=== PATIENT | male | born 1995 | race Caucasian/White ===

== ENCOUNTER → 2016-03-25 | Day surgery (SDC) | payer BC, OTHER ==
[~2016-03-25] VITALS: Ht 177.8 cm; Wt 54.4 kg
[~2016-03-25] MED LIST: FLOM5CAP PO; LIDOCAINE 2% INJ 100 MG/5 ML SDV (FOR ANES.) As Ordered ONE; MIDAZOLAM INJ 2 MG/2 ML VIAL (J2250) As Ordered ONE; MOTR200T40 PO; PROPOFOL 200 MG/20 ML VIAL As Ordered ONE; TAMSULOSIN 0.4 MG CAP PO SCH; TRAM-533 PO; ceFAZolin 2 GM/D5W 50 ML IV BAG (J0690) As Ordered ONE; fentaNYL 100 MCG/2 ML INJECTION (J3010) As Ordered ONE; traMADol 50 MG TAB As Ordered ONE; traMADol 50 MG TAB PO PRN
--- NOTE | 2016-03-25 09:19 | REP ---
Clinical: Nephrolithiasis. Technique: Two supine views of the abdomen and pelvis. Findings: Punctate nonobstructing intrarenal calculi (left greater than right) cannot be excluded. Further evaluation of the urinary tract system is limited due to overlying bowel gas and technique. No evidence for bowel obstruction. No organomegaly. Skeletal structures are intact and normal. Impression: Cannot exclude punctate nonobstructing renal calculi (left greater than right). Signed by Guzman Tejada MD 03/25/2016 09:10 A
[2016-03-25 10:15] VITALS: BP 120/74
--- NOTE | 2016-03-25 11:53 | RO ---
DATE OF PROCEDURE: 03/25/2016 PREOPERATIVE DIAGNOSIS: Left kidney stone. POSTOPERATIVE DIAGNOSIS: Left kidney stone. SURGERY PERFORMED: Left extracorporeal shockwave lithotripsy. SURGEON: Dr. García Elaine SHUCKER: None. ANESTHESIA: Monitored anesthesia care (MAC). COMPLICATIONS: None. ESTIMATED BLOOD LOSS: N/A. HISTORY OF PRESENT ILLNESS: This is a 20-year-old male patient with a 4 mm stone in the left kidney in the mid pole. The patient has consented for left extracorporeal shockwave lithotripsy. PROCEDURE DESCRIPTION: In a patient under MAC anesthesia in supine position after finding the stone with ultrasound, which was fairly easy, we gave a total of 2500 shockwave lithotripsies. The power went from 1 to 20. The first 100 shockwaves were done at a level of 1-5, the following 100 shockwaves were done at a level of 5-10, the following 2300 shockwaves were done at a level of 10-20. There were no complications of surgery. The plan will be to follow and the patient will go home today with increased water intake for 3 liters and follow at [facility] in 3 weeks. He will take Flomax and tramadol for pain.
== END ==
LOC: M SDC 06:16
PROVIDERS: ATTEND Urology
DX: N20.0 Calculus of kidney (principal); J45.909 Unspecified asthma, uncomplicated; Z79.899 Other long term (current) drug therapy; Z79.51 Long term (current) use of inhaled steroids; Z87.442 Personal history of urinary calculi
CPT/HCPCS: 50590; 74000; J0690; J2250; J3010

== ENCOUNTER → 2016-04-19 | Outpatient (CLI) | payer BC, OTHER ==
[~2016-04-19] MED LIST changes: -LIDOCAINE 2% INJ 100 MG/5 ML SDV (FOR ANES.) As Ordered ONE; -MIDAZOLAM INJ 2 MG/2 ML VIAL (J2250) As Ordered ONE; -MOTR200T40 PO; +MOTR200T44 PO; -PROPOFOL 200 MG/20 ML VIAL As Ordered ONE; -TAMSULOSIN 0.4 MG CAP PO SCH; -ceFAZolin 2 GM/D5W 50 ML IV BAG (J0690) As Ordered ONE; -fentaNYL 100 MCG/2 ML INJECTION (J3010) As Ordered ONE; -traMADol 50 MG TAB As Ordered ONE; -traMADol 50 MG TAB PO PRN
--- NOTE | 2016-04-19 12:49 | REP ---
KUB: Single view. HISTORY: Kidney calculus. Comparison KUB study March 25, 2016. FINDINGS: There is a faint calcific density superimposed on the left lower pole 3 to 4 mm in diameter consistent with an intrarenal calculus. Calcifications were visible in the left kidney on CT study from March 10, 2016. Bowel gas pattern is normal. IMPRESSION: Suspect small intrarenal calculus lower pole left kidney. Signed by Saul Goodman MD 04/19/2016 01:25 P
== END ==
LOC: M SMT 08:22
PROVIDERS: ATTEND Nurse Practitioner Women's Health
DX: N20.0 Calculus of kidney (principal)

== ENCOUNTER → 2016-10-05 | Outpatient (CLI) | payer BC, OTHER ==
[2016-10-05 12:34] LABS: MEAN CORPUSCULAR HEMOGLOBIN 30.4 pg (27.0-33.0); MEAN CORPUSCULAR HGB CONC 34.7 g/dl (32.0-36.5); MEAN CORPUSCULAR VOLUME 87.6 fl (80.0-96.0); RED CELL DISTRIBUTION WIDTH 12.1 % (11.5-14.5); WHITE BLOOD COUNT 5.8 K/mm3 (4.0-10.0)
[2016-10-05 12:58] LABS: ALBUMIN 4.1 GM/DL (3.2-5.2); ALBUMIN/GLOBULIN RATIO 1.24 (1.00-1.93); ALKALINE PHOSPHATASE 64 U/L (45-117); ALT/SGPT 40 U/L (12-78); ANION GAP 8 MEQ/L (8-16); AST/SGOT 20 U/L (15-37); BILIRUBIN,TOTAL 0.5 MG/DL (0.2-1.0); BLOOD UREA NITROGEN 13 MG/DL (7-18); CALCIUM LEVEL 9.3 MG/DL (8.5-10.1); CARBON DIOXIDE LEVEL 26 MEQ/L (21-32); CHLORIDE LEVEL 107 MEQ/L (98-107); CHOLESTEROL LEVEL 132 MG/DL (<200); CREATININE FOR GFR 0.75 MG/DL (0.70-1.30); GLUCOSE, FASTING 85 MG/DL (70-105); POTASSIUM SERUM 4.3 MEQ/L (3.5-5.1); SODIUM LEVEL 141 MEQ/L (136-145); TOTAL PROTEIN 7.4 GM/DL (6.4-8.2); TRIGLYCERIDES LEVEL 77 MG/DL (<150)
[2016-10-07 00:07] LABS: HEMOGLOBIN A 97.3 % (94.0-98.0)
== END ==
LOC: M LAB 11:55
PROVIDERS: ATTEND Family Medicine
DX: Z83.2 Family history of diseases of the blood and blood-forming organs and certain disorders involving the immune mechanism (principal); R63.6 Underweight; Z13.220 Encounter for screening for lipoid disorders; E55.9 Vitamin D deficiency, unspecified

== ENCOUNTER 2018-10-10 09:21 | Emergency (ER) | payer BC, OTHER ==
[~2018-10-10] VITALS: Ht 177.8 cm; Wt 59.1 kg
[~2018-10-10 09:21] MED LIST changes: +FLOM0.4C39 PO; -FLOM5CAP PO
[2018-10-10 11:05] LABS: BASO % 0.5 % (0.0-1.0); EOS % 0.2 % (0.0-3.0); HEMATOCRIT 46.3 % (42.0-52.0); HEMOGLOBIN 15.4 g/dl (13.5-17.5); LYMPH # 1.6 10^3/uL (1.5-6.5); LYMPH % 18.7 % (24.0-44.0); MEAN CORPUSCULAR HEMOGLOBIN 30.3 pg (27.0-33.0); MEAN CORPUSCULAR HGB CONC 33.3 g/dl (32.0-36.5); MONO # 0.6 10^3/uL (0.0-0.8); MONO % 6.6 % (0.0-5.0); NEUTROPHILS # 6.1 10^3/uL (1.8-7.7); NEUTROPHILS % 73.6 % (36.0-66.0); PLATELET COUNT, AUTOMATED 336 10^3/uL (150-450); RED BLOOD COUNT 5.09 10^6/uL (4.30-6.10); WHITE BLOOD COUNT 8.3 10^3/uL (4.0-10.0)
[2018-10-10 11:42] LABS: BLOOD UREA NITROGEN 13 MG/DL (7-18); CALCIUM LEVEL 9.5 MG/DL (8.5-10.1); CARBON DIOXIDE LEVEL 29 MEQ/L (21-32); CHLORIDE LEVEL 106 MEQ/L (98-107); CREATININE FOR GFR 0.99 MG/DL (0.70-1.30); ETHYL ALCOHOL (ETHANOL) < 0.003 % (0.000-0.010); GLOMERULAR FILTRATION RATE > 60.0 (>60); GLUCOSE, FASTING 71 MG/DL (70-100); MAGNESIUM LEVEL 2.3 MG/DL (1.8-2.4); POTASSIUM SERUM 3.9 MEQ/L (3.5-5.1); SODIUM LEVEL 139 MEQ/L (136-145); THYROID STIMULATING HORMONE 0.464 uIU/ML (0.358-3.740)
[2018-10-10] MEDS ORDERED: NS 1,000 ML IV ONE (12:00)
[2018-10-10 13:31] LABS: AMPHETAMINES LEVEL URINE NEGATIVE (NEGATIVE); BARBITURATES URINE NEGATIVE (NEGATIVE); BENZODIAZEPINES URINE NEGATIVE (NEGATIVE); CANNABINOIDS URINE NEGATIVE (NEGATIVE); COCAINE METABOLITE URINE NEGATIVE (NEGATIVE); METHADONE URINE NEGATIVE (NEGATIVE); OPIATES URINE NEGATIVE (NEGATIVE); PHENCYCLIDINE URINE NEGATIVE (NEGATIVE)
[2018-10-10 14:01] VITALS: BP 120/75
--- NOTE | 2018-10-11 00:17 | ECGEPIP ---
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 Order Number: [id number] Reading MD: Maximo Dunbar Measurements Intervals [place] Rate: 66 P: 56 MT: 146 QRS: 74 QRSD: 93 T: 50 QT: 371 QTc: 390 Interpretive Statements SINUS RHYTHM Comparison tracing not on file Electronically Signed on 10-11-2018 0:17:21 EDT by Maximo Dunbar
== END 2018-10-10 14:07 | disposition home or self-care (01) ==
LOC: M ED 09:21
DX: R55 Syncope and collapse (principal)
CPT/HCPCS: 36415; 80048; 80307; 83735; 84443; 85025; 93005; 93041; 94760; 96360; 96361; 99285; G0480

== ENCOUNTER 2019-02-13 07:00 | Day surgery (SDC) | payer BC, OTHER ==
[~2019-02-13] VITALS: Ht 177.8 cm; Wt 59.9 kg
[~2019-02-13 07:00] MED LIST changes: +LIDOCAINE 1% MDV 20ML VIAL SQ PRN; +LR 1,000 ML IV ONE
[2019-02-13] MEDS ORDERED: LIDOCAINE 1% SDV INJ 30 ML VIAL As Ordered ONE (07:11)
[2019-02-13] MEDS ORDERED: fentaNYL 100 MCG/2 ML INJECTION (J3010) As Ordered ONE (07:14)
[2019-02-13] MEDS ORDERED: MIDAZOLAM INJ 2 MG/2 ML VIAL (J2250) As Ordered ONE (07:14)
[2019-02-13] MEDS ORDERED: PROPOFOL 200 MG/20 ML VIAL As Ordered ONE (07:16)
[2019-02-13] MEDS ORDERED: LIDOCAINE 2% INJ 100 MG/5 ML SDV (FOR ANES.) As Ordered ONE (07:16)
[2019-02-13] MEDS ORDERED: ONDANSETRON 4MG/2ML VIAL (J2405) As Ordered ONE (07:16)
[2019-02-13] MEDS ORDERED: ceFAZolin 1GM INJ (J0690 PER 500MG) As Ordered ONE (09:11)
--- NOTE | 2019-02-13 10:22 | RO ---
DATE OF OPERATION: 02/13/2019 PREOPERATIVE DIAGNOSIS: Unexplained syncope. POSTOPERATIVE DIAGNOSIS: Unexplained syncope. PROCEDURE PERFORMED: Implantation of a Biotronic implantable loop recorder (BioMonitor III). SURGEON: Maximo Beaver MD TERMITE CONTROL SERVICE REPRESENTATIVE: None. ANESTHESIA: Lidocaine 1% local/monitored anesthetic care. FINDINGS: Unexplained syncope. SPECIMENS: None. ESTIMATED BLOOD LOSS: Less than 3 mL. No blood products replaced. No drains. No complications. PROCEDURE DESCRIPTION: This procedure was performed in the operating room with intravenous (IV) sedation because the patient was requesting IV sedation to manage anxiety related to performing the procedure. For this reason it was felt that he was not suitable to perform this procedure in an outpatient office setting. The patient was prepped and draped over the left anterior chest and sternal region. Lidocaine 1% was used for local anesthetic. An incision approximately 1.5 cm in length was made with a #15 blade through the skin at the 3rd interspace about an inch lateral to the left parasternal border. The insertion tool was placed into the incision and advanced in the subcutaneous fat tissue parallel to the skin in a left lateral-caudal direction. The lock on the insertion device was then unlocked and the inner blue portion of the insertion tool was pulled back all the way. The device was then removed from the pocket leaving the loop recorder in situ. The initial R wave was 1.98 mV. During the creation of the initial skin incision two small arterial bleeders were stopped by obtained hemostasis with a Vicryl suture on each. Two #3-0 Vicryl sutures were used to help approximate the superficial layer. The skin was then approximated using a #4-0 Biosyn stitch applied subcuticular with the free ends protruding a centimeter from either end. This was used hold the suture under tension to approximate the skin edges as closely as possible. Next, three layers of Dermabond was applied. The Biosyn suture was then pulled through the incision line and removed entirely. The patient tolerated the procedure well without any immediate complications. The implantable loop recorder implanted was a Biotronic BioMonitor III with serial #[id number].
[2019-02-13 10:27] VITALS: BP 96/63
== END 2019-02-13 10:55 | disposition home or self-care (01) ==
LOC: M SDC 07:00
PROVIDERS: ATTEND Internal Medicine Cardiovascular Disease
DX: R55 Syncope and collapse (principal); J45.909 Unspecified asthma, uncomplicated; Z87.442 Personal history of urinary calculi
CPT/HCPCS: 33285; C1785; J0690; J2250; J2405; J3010

== ENCOUNTER → 2019-05-29 | Outpatient (REF) | payer BC, OTHER ==
[~2019-05-29] MED LIST changes: -LIDOCAINE 1% MDV 20ML VIAL SQ PRN; -LR 1,000 ML IV ONE
[2019-05-29 14:43] LABS: BLOOD UREA NITROGEN 14 MG/DL (7-18); CREATININE FOR GFR 0.94 MG/DL (0.70-1.30); GLOMERULAR FILTRATION RATE > 60.0 (>60); RHEUMATOID FACTOR QUANT < 10.0 IU/ML (<15.0)
[2019-05-29 14:54] LABS: VITAMIN B12 LEVEL 500 PG/ML
[2019-05-29 14:55] LABS: FOLATE 14.4 NG/ML
== END ==
LOC: M LABNEURO 09:01
PROVIDERS: ATTEND Psychiatry & Neurology Neurology
DX: R51 Headache (principal)

== ENCOUNTER → 2021-01-21 | Outpatient (CLI) | payer BC, OTHER ==
--- NOTE | 2021-01-26 18:10 | SLEEPHOME ---
DATE: 01/21/2021 ORDERED BY: EVER BLANCO MD Diagnostic home sleep testing was performed due to concern for the obstructive sleep apnea syndrome in this patient with cardiac dysrhythmia noted in sleep. For testing, a NOX T3 respiratory monitoring device was used. Continuous record was made of pulse, oxygen saturation, air flow, chest and abdominal strain, and body position. There was 9 hours and 59 minutes of data reviewed. There were 7 hours and 33 minutes marked as time in bed. During the interval marked time in bed, there were 108 respiratory events identified of 10 seconds in duration or greater for a respiratory event index of 14.3, the events were split between obstructive and central apneas, 45 central and 8 mixed apneas were scored. The patient's baseline pulse rate was 70 beats per minute. Pulse rate ranged between 41-194. Baseline saturation was 89%, oxygen desaturations to 71% were seen and testing was performed in both the supine and nonsupine positions. Heart rate variability was seen concurrent with the respiratory events, however, heart rate is measured via pulse oximetry probe and the results are thus limited. IMPRESSIONS: Abnormal home sleep testing with repetitive respiratory events and oxygen desaturations to 71% with a respiratory event index of 14.3 is consistent with the obstructive sleep apnea syndrome. RECOMMENDATION: The patient should be encouraged to undergo formal sleep evaluation.
== END ==
LOC: M SLEEP HO 09:57
PROVIDERS: ATTEND Internal Medicine Cardiovascular Disease
DX: R00.1 Bradycardia, unspecified (principal)